=== PATIENT | male | born 1975 | race Two or more races ===

== ENCOUNTER 2017-08-21 03:01 | Emergency (ER) | payer OTHER ==
[~2017-08-21] VITALS: Ht 175.3 cm; Wt 74.8 kg
[2017-08-21 03:20] VITALS: BP 152/90
--- NOTE | 2017-08-21 03:25 | Emergency Room Report ---
History of Present Illness General Chief Complaint: Medical Clearance Source: Patient, EMS Present Illness HPI Patient brought in for medical evaluation. Allegedly doing methamphetamine. He states is mainly hungry. He denies being suicidal. No fevers, chest pain, palpitations, NVD, extremity pain, headache, rashes. Allergies: Coded Allergies: No Known Allergies (Unverified , 08/21/17) Patient History Past Medical History: see triage record Social History: Reports: smoking, drug use Social History Narrative with [employer] Reviewed Nursing Documentation: PMH: Agreed; PSxH: Agreed Nursing Documentation-PMH Past Medical History: No Stated History Review of Systems All Other Systems: negative except mentioned in HPI Physical Exam Vital Signs Date Time Temp Pulse Resp B/P (MAP) Pulse Ox O2 Delivery O2 Flow Rate FiO2 08/21/17 03:02 98.6 115 18 180/113 100 Room Air 98.6 General Appearance: alert, mild distress - with anxiety, thin Head: normocephalic, atraumatic Eyes: bilateral eye PERRL, bilateral eye Scleral Injection ENT: hearing grossly normal, normal voice, dry mucus membranes Neck: full range of motion, supple Respiratory: no respiratory distress, speaking full sentences Cardiovascular #1: tachycardia Cardiovascular #2: 2+ radial (L) Gastrointestinal: normal inspection, normal bowel sounds, non tender, scaphoid Musculoskeletal: back normal, no calf tenderness Neurologic: alert, oriented x3, motor strength/tone normal, DTRs symmetric, sensory intact, normal gait Psychiatric: no suicidal/homicidal ideation, anxious Skin: no rash Medical Decision Making Diagnostic Impression: Primary Impression: Amphetamine abuse Additional Impression: UTI (urinary tract infection) Qualified Codes: N30.00 - Acute cystitis without hematuria ER Course Patient brought for anxiety post meth use. DDX: anxiety, methamphetamine toxicity, renal failure, rhabdomyolysis, electrolyte abnormalities amongst others. No evidence of head trauma and non-focal neuro. No SI or HI. Evaluation with labs. Patient refusing other treatment. Labs with + tox, sl elevated CK. Normal renal function. Police refuse to place patient on hold and apparently, not under arrest. They allege he reported SI to them - but he denies this. Patient refused to take antibiotic medication and wants to go home. Explained risk of if not take antibiotics - he understands this but still refuses medication. He still denies SI and HI to me consistently. Given Rx for macrobid. Patient stable for outpatient observation and treatment. Escorted out of ED by PD. Laboratory Tests Test 08/21/17 03:20 08/21/17 04:30 Urine Color Yellow Urine Appearance Slightly cloudy Urine pH 5 (4.5-8.0) Urine Specific [place] 1.030 (1.005-1.035) Urine Protein 3+ (NEGATIVE) H Urine Glucose (UA) Negative (NEGATIVE) Urine Ketones 1+ (NEGATIVE) H Urine Occult Blood Negative (NEGATIVE) Urine Nitrite Negative (NEGATIVE) Urine Bilirubin Negative (NEGATIVE) Urine Urobilinogen 1 MG/DL (0.0-1.0) H Urine Leukocyte Esterase 2+ (NEGATIVE) H Urine RBC 0-2 /HPF (0 - 0) H Urine WBC 20-30 /HPF (0 - 0) H Urine Squamous Epithelial Cells None /LPF (NONE/OCC) Urine Bacteria Few /HPF (NONE) Urine Coarse Granular Casts 0-2 /LPF (NONE) H Urine Sperm Moderate /LPF (NONE) Urine Opiates Screen Negative (NEGATIVE) Urine Barbiturates Screen Negative (NEGATIVE) Phencyclidine (PCP) Screen Negative (NEGATIVE) Urine Amphetamines Screen Positive (NEGATIVE) H Urine Benzodiazepines Screen Negative (NEGATIVE) Urine Cocaine Screen Negative (NEGATIVE) Urine Marijuana (THC) Screen Positive (NEGATIVE) H White Blood Count 8.2 K/UL (4.8-10.8) Red Blood Count 4.52 M/UL (4.70-6.10) L Hemoglobin 14.7 G/DL (14.2-18.0) Hematocrit 41.4 % (42.0-52.0) L Mean Corpuscular Volume 91 FL (80-99) Mean Corpuscular Hemoglobin 32.5 PG (27.0-31.0) H Mean Corpuscular Hemoglobin Concent 35.5 G/DL (32.0-36.0) Red Cell Distribution Width 10.7 % (11.6-14.8) L Platelet Count 349 K/UL (150-450) Mean Platelet Volume 7.8 FL (6.5-10.1) Neutrophils (%) (Auto) 67.4 % (45.0-75.0) Lymphocytes (%) (Auto) 17.5 % (20.0-45.0) L Monocytes (%) (Auto) 9.3 % (1.0-10.0) Eosinophils (%) (Auto) 3.7 % (0.0-3.0) H Basophils (%) (Auto) 2.1 % (0.0-2.0) H Sodium Level 137 MMOL/L (136-145) Potassium Level 3.5 MMOL/L (3.5-5.1) Chloride Level 99 MMOL/L (98-107) Carbon Dioxide Level 28 MMOL/L (21-32) Anion Gap 10 mmol/L (5-15) Blood Urea Nitrogen 14 mg/dL (7-18) Creatinine 1.0 MG/DL (0.55-1.30) Estimate Glomerular Filtration Rate > 60 mL/min (>60) Glucose Level 116 MG/DL (74-106) H Calcium Level 9.5 MG/DL (8.5-10.1) Total Bilirubin 0.9 MG/DL (0.2-1.0) Aspartate Amino Transferase (AST) 50 U/L (15-37) H Alanine Aminotransferase (ALT) 44 U/L (12-78) Alkaline Phosphatase 89 U/L (46-116) Total Creatine Kinase 1339 U/L (26-308) H Troponin I 0.000 ng/mL (0.000-0.056) Total Protein 7.8 G/DL (6.4-8.2) Albumin 4.3 G/DL (3.4-5.0) Globulin 3.5 g/dL Albumin/Globulin Ratio 1.2 (1.0-2.7) Salicylates Level 0.3 ug/mL (2.8-20) L Acetaminophen Level < 2 MCG/ML (10-30) L Serum Alcohol < 3 mg/dL Last Vital Signs Date Time Temp Pulse Resp B/P (MAP) Pulse Ox O2 Delivery O2 Flow Rate FiO2 08/21/17 05:30 97.9 88 18 154/94 99 Room Air 97.9 Status: improved Disposition: HOME, SELF-CARE Condition: Stable Scripts Nitrofurantoin Monohyd/M-Cryst* (MACROBID 100 MG*) 100 Mg Capsule 100 MG ORAL EVERY 12 HOURS, #14 CAP Prov: J Carlos Martinez M.D. 08/21/17 J Carlos Martinez M.D. Aug 21, 2017 03:25
[2017-08-21 03:57] LABS: BILIRUBIN, URINE NEGATIVE (NEGATIVE); GLUCOSE, URINE (UA) NEGATIVE (NEGATIVE); KETONES,URINE 1+ (NEGATIVE); NITRITE,URINE NEGATIVE (NEGATIVE); PH,URINE 5 (4.5-8.0); PROTEIN,URINE 3+ (NEGATIVE); UROBILINOGEN,URINE 1 MG/DL (0.0-1.0)
[2017-08-21 04:09] LABS: APPEARANCE,URINE SLIGHTLY CLOUDY; COLOR,URINE YELLOW; LEUKOCYTE ESTERASE ,URINE 2+ (NEGATIVE)
[2017-08-21 04:40] LABS: BASOPHILS % (AUTO) 2.1 % (0.0-2.0); EOSINOPHILS % (AUTO) 3.7 % (0.0-3.0); HEMATOCRIT 41.4 % (42.0-52.0); HEMOGLOBIN 14.7 G/DL (14.2-18.0); LYMPHOCYTES % (AUTO) 17.5 % (20.0-45.0); MEAN CORPUSCULAR VOLUME 91 FL (80-99); MONOCYTES % (AUTO) 9.3 % (1.0-10.0); NEUTROPHILS % (AUTO) 67.4 % (45.0-75.0); PLATELET COUNT 349 K/UL (150-450); RED BLOOD COUNT 4.52 M/UL (4.70-6.10); RED CELL DISTRIBUTION WIDTH 10.7 % (11.6-14.8); WHITE BLOOD COUNT 8.2 K/UL (4.8-10.8)
[2017-08-21 04:54] LABS: ANION GAP 10 mmol/L (5-15); BLOOD UREA NITROGEN 14 mg/dL (7-18); CALCIUM 9.5 MG/DL (8.5-10.1); CARBON DIOXIDE 28 MMOL/L (21-32); CHLORIDE 99 MMOL/L (98-107); POTASSIUM 3.5 MMOL/L (3.5-5.1); SODIUM 137 MMOL/L (136-145)
[2017-08-21 05:09] LABS: ALANINE AMINOTRANSFERASE 44 U/L (12-78); ALBUMIN 4.3 G/DL (3.4-5.0); ALBUMIN/GLOBULIN RATIO 1.2 (1.0-2.7); ALKALINE PHOSPHATASE 89 U/L (46-116); ASPARTATE AMINO TRANSFERASE 50 U/L (15-37); BILIRUBIN,TOTAL 0.9 MG/DL (0.2-1.0); CREATINE KINASE 1339 U/L (26-308)
[2017-08-21 05:20] VITALS: BP 154/94
[2017-08-21] MEDS ORDERED: NITROFURANTOIN100 M2 ORAL (05:22)
[2017-08-21 05:30] VITALS: BP 154/94
== END 2017-08-21 05:30 | disposition home or self-care (01) ==
LOC: EDBD 03:01 → EMR 03:37
DX: F15.10 Other stimulant abuse, uncomplicated (principal); N39.0 Urinary tract infection, site not specified
CPT/HCPCS: 36415; 80053; 80307; 81003; 82550; 84484; 85025; 87086; 99283; G0480; 80329